=== PATIENT | male | born 1960 | race Hispanic/Latino ===

== ENCOUNTER 2017-04-12 08:04 | Emergency (ER) | payer BC ==
[2017-04-12 08:35] LABS: Basophils % (Auto) 0.8 % (0.0-1.8); Hematocrit 43.5 % (35.5-45.6); Hemoglobin 13.9 gm/dl (11.8-15.2); Mean Corpuscular HGB Conc 32 % (32-34); Mean Corpuscular Volume 81 fl (84-94); Platelet Count 299 K/mm3 (140-440); Red Blood Count 5.38 M/mm3 (3.65-5.03); Red Cell Distribution Width 16.8 % (13.2-15.2); White Blood Count 19.1 K/mm3 (4.5-11.0)
[2017-04-12 08:37] LABS: Mean Corpuscular Hemoglobin 26 pg (28-32)
[2017-04-12 08:52] LABS: Anion Gap 19 mmol/L; BUN/Creatinine Ratio 17.77; Blood Urea Nitrogen 16 mg/dL (9-20); Calcium 10.2 mg/dL (8.4-10.2); Carbon Dioxide 24 mmol/L (22-30); Chloride 105.4 mmol/L (98-107); Glucose 135 mg/dL (75-100); Potassium 4.7 mmol/L (3.6-5.0); Sodium 144 mmol/L (137-145)
[2017-04-12] MEDS ORDERED: PROVENTIL IH ONE (09:13)
[2017-04-12] MEDS ORDERED: PEPCID IV ONE (09:14)
[2017-04-12] MEDS ORDERED: DUONEB 0.5 MG-3 MG/3 ML SOLN IH ONE (09:14)
[2017-04-12] MEDS ORDERED: ATROVENT IH ONE (09:15)
[2017-04-12] MEDS ORDERED: BENADRYL IV ONE (09:15)
--- NOTE | 2017-04-12 09:17 | Emergency Department Report ---
ED General Adult HPI - General Chief complaint: Chest Pain Stated complaint: CHEST PAIN Time Seen by Provider: 04/12/17 09:13 Source: patient, family Mode of arrival: Ambulatory Limitations: No Limitations - History of Present Illness Initial comments: The patient was treated had [facility] yesterday for an apparent anaphylactic reaction. He was given steroids and various other medications. He was observed in the emergency department in [place]. He improved and was released. The patient tells me that since he got IV contrast for a chest CT he has had a sensation of discomfort in his dress which is most like pressure or tightness. He does have associated wheezing. He left his inhaler in the car. He was in outpatient with his who is having a surgical procedure. Bystanders noticed him to be red or flushed and recommend that he go to the emergency department. He stated that he had recurrent itching just like he did yesterday. He was prescribed medicine by the physician's in the [place] emergency department. However, he did not get his prescription filled nor take anything [id number] such as Benadryl or Pepcid. He states he still has the prescriptions. He also tells me that he had a nuclear stress test approximately 2 months ago which he "passed with flying colors". He states that he thinks he could benefit from a nebulizer treatment now. -: Gradual (after contrast yesterday) Location: chest Radiation: non-radiation Quality: other Consistency: intermittent Improves with: none Worsens with: none Associated Symptoms: other (associated with tightness or wheezing) Treatments Prior to Arrival: none - Related Data Allergies Allergy/AdvReac Type Severity Reaction Status Date / Time codeine Allergy Vomiting Verified 04/12/17 08:24 Iodinated Contrast Media - Allergy Swelling Verified 04/12/17 08:24 IV Dye naproxen [From Naprosyn] Allergy Vomiting Verified 04/12/17 08:24 ED Review of Systems ROS: Stated complaint: CHEST PAIN Other details as noted in HPI Constitutional: denies: chills, fever Eyes: denies: eye pain, eye discharge, vision change ENT: denies: ear pain, throat pain Respiratory: wheezing. denies: cough, shortness of breath Cardiovascular: chest pain. 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 Absent: scleral icterus - ENT ENT exam: Present: mucous membranes moist, other (previous palatectomy. No mucosal edema. Tongue appears normal.) - Neck Neck exam: Present: normal inspection. Absent: tenderness, meningismus - Respiratory Respiratory exam: Present: decreased breath sounds. Absent: respiratory distress - Cardiovascular Cardiovascular Exam: Present: regular rate, normal rhythm. Absent: systolic murmur, diastolic murmur, rubs, gallop - GI/Abdominal GI/Abdominal exam: Present: soft, normal bowel sounds. Absent: distended, tenderness, guarding, rebound - Rectal Rectal exam: Present: deferred - Extremities Exam Extremities exam: Present: normal inspection - Back Exam Back exam: Present: normal inspection - Neurological Exam Neurological exam: Present: alert, oriented X3, CN II-XII intact. Absent: motor sensory deficit - Psychiatric Psychiatric exam: Present: normal affect, normal mood - Skin Skin exam: Present: warm, dry, intact, normal color. Absent: rash ED Course Vital Signs 04/12/17 08:16 Temperature 97.9 F Pulse Rate 79 Respiratory 16 Rate Blood Pressure 140/78 O2 Sat by Pulse 98 Oximetry - Reevaluation(s) Reevaluation #1: Patient received a neb. He states that his symptoms of difficulty breathing and chest tightness resolved. I explained to him that with his multiple risk factors for heart disease we would recommend that he be admitted for further evaluation and observation of his anaphylactoid reaction. He told me initially that did not want to do this because the hospitalist not geographically feasible. I asked him again when his blood work came back showing some leukocytosis. He reiterated that he felt fine and wanted to be discharged. I explained the risks and benefits of leaving versus staying with multiple medical comorbidities the possibility of an acute coronary syndrome as well as some risk of recurrent anaphylaxis. Not withstanding that she is mentally competent and declines admission. I am not going to formally asked him to sign out AMA. However the process was essentially the same. 04/12/17 10:43 ED Medical Decision Making - Lab Data Result diagrams: 04/12/17 08:27 04/12/17 08:27 Laboratory Results - last 24 hr 04/12/17 04/12/17 08:27 08:27 WBC 19.1 H RBC 5.38 H Hgb 13.9 Hct 43.5 MCV 81 L MCH 26 L MCHC 32 RDW 16.8 H Plt Count 299 Lymph % (Auto) 15.1 Darke % (Auto) 8.0 H Eos % (Auto) 0.0 Baso % (Auto) 0.8 Lymph # 2.9 Darke # 1.5 H Eos # 0.0 Baso # 0.1 Seg Neutrophils % 76.1 H Seg Neutrophils # 14.5 H Sodium 144 Potassium 4.7 Chloride 105.4 Carbon Dioxide 24 Anion Gap 19 BUN 16 Creatinine 0.9 Estimated GFR > 60 BUN/Creatinine Ratio 17.77 Glucose 135 H Calcium 10.2 Troponin T < 0.010 - EKG Data -: EKG Interpreted by Me EKG shows normal: sinus rhythm, axis, intervals, QRS complexes, ST-T waves Rate: normal - EKG Data Interpretation: no acute changes Critical care attestation.: If time is entered above; I have spent that time in minutes in the direct care of this critically ill patient, excluding procedure time. ED Disposition Clinical Impression: Exacerbation of asthma Anaphylactoid reaction Qualifiers: Encounter type: initial encounter Qualified Code(s): T78.2XXA - Anaphylactic shock, unspecified, initial encounter Chest pain Qualifiers: Chest pain type: unspecified Qualified Code(s): R07.9 - Chest pain, unspecified Disposition: DISCHARGED TO HOME OR SELFCARE Is pt being admited?: No Does the pt Need Aspirin: No Condition: Stable Instructions: Chest Pain (ED) Additional Instructions: As discussed, I would really prefer to admit you to the hospital for further care and evaluation. 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 Return to any emergency department for recurrent symptoms or if you desire further evaluation for your chest pain. Certainly get the medication I was previously prescribed at the emergency department last night. He did have an elevated white blood cell count. While it could be due to the steroids he received it deserves follow- up. I've given you a copy of your laboratory tests for your physicians reference. We have discussed the risks of going home rather than admission. Referrals: usual, physicians [Other] - NIKITA Time of Disposition: 10:47
[2017-04-12] MEDS ORDERED: BENADRYL PO ONE (09:23)
[2017-04-12] MEDS ORDERED: PEPCID PO ONE (09:24)
--- NOTE | 2017-04-12 10:26 | XRay Report ---
Chest 2 views: History: Shortness of breath. Findings: Normal cardiomediastinal silhouette. Trachea is midline. Suspicion of discoid atelectasis or pneumonitis lingula left lung. No pleural effusion. Impression: Suspicion of discoid atelectasis or pneumonitis lingula and left lung.
[2017-04-12 11:07] VITALS: BP 117/61
== END 2017-04-12 11:07 | disposition home or self-care (01) ==
LOC: ED 08:04
DX: J45.901 Unspecified asthma with (acute) exacerbation (principal); T78.2XXA Anaphylactic shock, unspecified, initial encounter; I10 Essential (primary) hypertension; E11.9 Type 2 diabetes mellitus without complications; Z90.49 Acquired absence of other specified parts of digestive tract; Z88.6 Allergy status to analgesic agent; Z91.041 Radiographic dye allergy status
CPT/HCPCS: 36415; 71020; 80048; 84484; 85025; 93005; 93010; 99285; J1200